=== PATIENT | female | born 1940 | race Caucasian/White ===

== ENCOUNTER 2019-09-18 17:51 | Emergency (ER) | payer MEDICARE ==
[~2019-09-18] VITALS: Ht 177.8 cm; Wt 95.2 kg
== END 2019-09-18 20:19 | disposition home or self-care (01) ==
LOC: ER 17:51
DX: R06.00 Dyspnea, unspecified (principal); N18.3 Chronic kidney disease, stage 3 (moderate); Z86.711 Personal history of pulmonary embolism; Z88.8 Allergy status to other drugs, medicaments and biological substances; Z79.899 Other long term (current) drug therapy
CPT/HCPCS: 36415; 71046; 71260; 99284-25; Q9967

== ENCOUNTER → 2019-09-18 | Outpatient (CLI) | payer MEDICARE ==
[~2019-09-18] MED LIST: ACET500ER PO; AMLO5 PO; CHOL10002 PO; COMBIVENT RESPIM4 GM INH; ELIQUIS5 MG PO; FERR325 PO; OMEP20ER PO; PARO25; PRED1 PO; Prilosec Otc20 MG PO; SUMA25; ZOLP10
[2019-09-18 12:15] LABS: BASOPHILS ABSOLUTE AUTO 0.04 K/mm3 (0.00-0.23); BASOPHILS PERCENT AUTO 1 % (0-2); EOSINOPHILS ABSOLUTE AUTO 0.05 K/mm3 (0.00-0.68); EOSINOPHILS PERCENT AUTO 1 % (0-6); Hematocrit 38.4 % (33.0-51.0); Hemoglobin 11.9 g/dL (11.5-16.0); IMMATURE GRAN ABSOLUTE AUTO 0.03 K/mm3 (0.00-0.10); IMMATURE GRAN PERCENT AUTO 0 % (0-1); LYMPHOCYTES ABSOLUTE AUTO 1.31 K/mm3 (0.84-5.20); LYMPHOCYTES PERCENT AUTO 19 % (21-46); MONOCYTES ABSOLUTE AUTO 0.65 K/mm3 (0.16-1.47); MONOCYTES PERCENT AUTO 10 % (4-13); Mean Corpuscular HGB 26.9 pg (26.0-34.0); Mean Corpuscular Volume 87 fL (80-100); Mean Platelet Volume 10.8 fL (9.1-12.4); NEUTROPHILS ABSOLUTE AUTO 4.74 K/mm3 (1.96-9.15); NEUTROPHILS PERCENT AUTO 70 % (41-73); Platelet Count 243 K/mm3 (150-400); RDW Coefficient Variation 14.4 % (11.7-14.2); RDW Standard Deviation 45.5 fL (35.1-46.3); Red Blood Cell Count 4.43 M/mm3 (3.80-5.20); White Blood Cell Count 6.82 K/mm3 (4.00-11.30)
[2019-09-18 12:33] LABS: Anion Gap 10 mmol/L (6-16); Blood Urea Nitrogen 16 mg/dL (8-24); Bun/Creatinine Ratio 13.8 (12.0-20.0); CO2, Blood 24 mmol/L (21-32); Calcium, Blood 9.2 mg/dL (8.5-10.1); Chloride, Blood 106 mmol/L (98-108); Creatinine, Blood 1.16 mg/dL (0.40-1.00); Glomerular Filtration Rate 45 (60-); Glucose, Blood 102 mg/dL (70-99); Potassium, Blood 4.1 mmol/L (3.5-5.5); Sodium, Blood 140 mmol/L (136-145); Thyroid Stimulating Hormone 1.448 uIU/mL (0.360-4.800)
[2019-09-18 12:35] LABS: Troponin I <0.017 ng/mL (0.000-0.040)
== END | disposition home or self-care (01) ==
LOC: LAB SHORT 12:10 → LAB EV 12:10
PROVIDERS: Physician Assistant Surgical
DX: M62.81 Muscle weakness (generalized) (principal)
CPT/HCPCS: 80048; 83880; 84443; 84484; 85025; 85379

== ENCOUNTER → 2020-05-14 | Outpatient (CLI) | payer MEDICARE ==
[~2020-05-14] MED LIST changes: +CEFU250T47 PO; +FERROUS SULFAT324 MG PO; +FURO20 PO; +Klor-Con 1010 MEQ PO; +METO25 PO; +METO25ER PO; +POTCHL20ER; +PROBIOTIC PO; +VITAMIN D31000 UNI1 PO
[2020-05-14 15:33] LABS: BASOPHILS ABSOLUTE AUTO 0.04 K/mm3 (0.00-0.23); BASOPHILS PERCENT AUTO 0 % (0-2); EOSINOPHILS ABSOLUTE AUTO 0.02 K/mm3 (0.00-0.68); EOSINOPHILS PERCENT AUTO 0 % (0-6); Hematocrit 37.4 % (33.0-51.0); IMMATURE GRAN ABSOLUTE AUTO 0.06 K/mm3 (0.00-0.10); IMMATURE GRAN PERCENT AUTO 0 % (0-1); LYMPHOCYTES ABSOLUTE AUTO 2.68 K/mm3 (0.84-5.20); LYMPHOCYTES PERCENT AUTO 19 % (21-46); MONOCYTES ABSOLUTE AUTO 1.07 K/mm3 (0.16-1.47); MONOCYTES PERCENT AUTO 8 % (4-13); Mean Corpuscular HGB 23.7 pg (26.0-34.0); Mean Corpuscular HGB Conc 29.4 g/dL (31.5-36.5); Mean Corpuscular Volume 80 fL (80-100); Mean Platelet Volume 10.9 fL (9.1-12.4); NEUTROPHILS ABSOLUTE AUTO 9.99 K/mm3 (1.96-9.15); NEUTROPHILS PERCENT AUTO 72 % (41-73); Platelet Count 310 K/mm3 (150-400); RDW Coefficient Variation 20.8 % (11.7-14.2); RDW Standard Deviation 60.3 fL (35.1-46.3); Red Blood Cell Count 4.65 M/mm3 (3.80-5.20); White Blood Cell Count 13.86 K/mm3 (4.00-11.30)
[2020-05-14 15:42] LABS: Albumin/Globulin Ratio 0.6 (0.8-1.8); Bilirubin, Total 1.1 mg/dL (0.1-1.0); Bun/Creatinine Ratio 7.8 (12.0-20.0); Creatinine, Blood 1.67 mg/dL (0.40-1.00)
== END | disposition home or self-care (01) ==
LOC: LAB EV 15:08 → LAB SHORT 15:08
PROVIDERS: Chiropractor
DX: N39.0 Urinary tract infection, site not specified (principal); R50.9 Fever, unspecified; R53.81 Other malaise
CPT/HCPCS: 80053; 83605; 84443; 85025; 87040; 87077; 87086; 87186

== ENCOUNTER → 2020-05-29 | Outpatient (CLI) | payer MEDICARE | LOC: LAB 17:48 → LAB SHORT 17:48 | DX: N39.0 Urinary tract infection, site not specified (principal) | CPT/HCPCS: 87077; 87086; 87186 ==

== ENCOUNTER → 2020-07-01 | Outpatient (CLI) | payer MEDICARE | LOC: LAB SHORT 13:56 → LAB SRC 13:56 | DX: N39.0 Urinary tract infection, site not specified (principal); Z87.440 Personal history of urinary (tract) infections | CPT/HCPCS: 87077; 87086; 87186 ==

== ENCOUNTER → 2021-01-26 | Outpatient (CLI) | payer MEDICARE | LOC: LAB 15:16 → LAB SHORT 15:16 | DX: N30.00 Acute cystitis without hematuria (principal); Z87.440 Personal history of urinary (tract) infections | CPT/HCPCS: 87086 ==

== ENCOUNTER 2021-05-12 07:58 | Day surgery (SDC) | payer MEDICARE ==
[~2021-05-12] VITALS: Ht 175.3 cm; Wt 95.5 kg
[2021-05-12] MEDS ORDERED: CEPH500 PO (08:33)
--- NOTE | 2021-05-12 08:47 | NUR ---
Ambulatory in Day SurgeryPatient states colon prep results clear. History, Chart, Medications and Allergies reviewed before start of procedure.Lungs clear T/O to Auscultation. Patient confirms NPO status and agrees with scheduled surgery.
--- NOTE | 2021-05-12 09:00 | NUR ---
05/12/21 0900 Lizzie Barriga History, Chart, Medications and Allergies reviewed before start of procedure. Patient confirms NPO status and agrees with scheduled surgery. 3-LEAD EKG REVIEWED WITH PHYSICIAN PRIOR TO START OF PROCEDURE. MONITOR INTACT WITH CONTINUOUS PULSE OXIMETRY AND INTERMITTENT BP. PATIENT DETERMINED TO BE ASA APPROPRIATE FOR PROPOFOL SEDATION PRIOR TO START OF PROCEDURE BY .
--- NOTE | 2021-05-12 10:07 | NUR ---
Discharge instructions reviewed with patient. Patient verbalizes understanding. Copy given to patient to take home. Patient States Post-Procedure ride home has been arranged.
== END 2021-05-12 10:20 | disposition home or self-care (01) ==
LOC: ORSCMMR 07:58 → ORD 09:30 → ORSCMMR 10:20
PROVIDERS: Surgery
PROC: 0DJD8ZZ Inspection of Lower Intestinal Tract, Via Natural or Artificial Opening Endoscopic (ICD-10-PCS; principal; 2021-05-12 09:30)
DX: R93.3 Abnormal findings on diagnostic imaging of other parts of digestive tract (principal); K57.30 Diverticulosis of large intestine without perforation or abscess without bleeding; I48.91 Unspecified atrial fibrillation; Z79.01 Long term (current) use of anticoagulants; J44.9 Chronic obstructive pulmonary disease, unspecified; E78.5 Hyperlipidemia, unspecified; I10 Essential (primary) hypertension; Z79.899 Other long term (current) drug therapy
CPT/HCPCS: J2704; J7120

== ENCOUNTER 2023-03-08 16:46 | Emergency (ER) | payer MEDICARE ==
[~2023-03-08] VITALS: Ht 172.7 cm; Wt 94.3 kg
[~2023-03-08 16:46] MED LIST changes: +CEPH500 PO; +LEVAQUIN750 MG PO; +LEVO750 PO
[2023-03-08 18:11] LABS: Source, Urine Straight Cath
[2023-03-08 18:17] LABS: Appearance, Urine Clear (Clear); Bilirubin, Urine Neg (Neg); Blood, Urine 5+ (Neg); Color, Urine Yellow (P-Yellow); Glucose Qualitative, Urine Neg (Neg); Ketones, Urine Neg (Neg); Leukocyte Esterase, Urine Neg (Neg); Nitrite, Urine Neg (Neg); Protein, Urine Neg (Neg); Urobilinogen, Urine NORM (Normal)
[2023-03-08 18:24] LABS: Bacteria Mod /hpf; Mucus Light (0-Heavy); Squamous Epithelial Cells Rare /hpf (Few); White Blood Cells, Urine 0-2 /hpf (0-5)
[2023-03-08 18:56] LABS: BASOPHILS ABSOLUTE AUTO 0.03 K/mm3 (0.00-0.23); BASOPHILS PERCENT AUTO 0 % (0-2); EOSINOPHILS ABSOLUTE AUTO 0.04 K/mm3 (0.00-0.68); EOSINOPHILS PERCENT AUTO 1 % (0-6); Hematocrit 37.6 % (33.0-51.0); Hemoglobin 12.4 g/dL (11.5-16.0); IMMATURE GRAN ABSOLUTE AUTO 0.03 K/mm3 (0.00-0.10); IMMATURE GRAN PERCENT AUTO 0 % (0-1); LYMPHOCYTES PERCENT AUTO 8 % (21-46); MONOCYTES ABSOLUTE AUTO 0.83 K/mm3 (0.16-1.47); MONOCYTES PERCENT AUTO 11 % (4-13); Mean Corpuscular HGB 29.8 pg (26.0-34.0); Mean Corpuscular Volume 90 fL (80-100); Mean Platelet Volume 10.9 fL (9.1-12.4); NEUTROPHILS ABSOLUTE AUTO 5.78 K/mm3 (1.96-9.15); NEUTROPHILS PERCENT AUTO 79 % (41-73); Platelet Count 162 K/mm3 (150-400); RDW Standard Deviation 43.1 fL (35.1-46.3); Red Blood Cell Count 4.16 M/mm3 (3.80-5.20); White Blood Cell Count 7.31 K/mm3 (4.00-11.30)
[2023-03-08 19:12] LABS: Albumin, Blood 2.9 g/dL (3.4-5.0); Albumin/Globulin Ratio 0.9 (0.8-1.8); Bilirubin, Total 1.1 mg/dL (0.1-1.0); Bun/Creatinine Ratio 18.9 (12.0-20.0); Creatinine, Blood 1.32 mg/dL (0.40-1.00); Globulin, Blood 3.4 g/dL (2.2-4.0); Total Protein, Blood 6.3 g/dL (6.4-8.2)
[2023-03-08 21:15] VITALS: BP 135/83
== END 2023-03-08 21:36 | disposition home or self-care (01) ==
LOC: ER 16:46
PROVIDERS: Emergency Medicine
DX: N39.0 Urinary tract infection, site not specified (principal); I12.9 Hypertensive chronic kidney disease with stage 1 through stage 4 chronic kidney disease, or unspecified chronic kidney disease; N18.30 Chronic kidney disease, stage 3 unspecified; Z88.8 Allergy status to other drugs, medicaments and biological substances; Z79.01 Long term (current) use of anticoagulants; Z79.899 Other long term (current) drug therapy
CPT/HCPCS: 70450; 80053; 81001; 85025; 87086; 96365; 99284-25; J0696; J7030

== ENCOUNTER 2023-09-08 19:27 | Emergency (ER) | payer MEDICARE ==
[~2023-09-08] VITALS: Ht 175.3 cm; Wt 88.5 kg
[2023-09-08 19:32] VITALS: BP 111/68
[2023-09-08 20:17] LABS: BASOPHILS ABSOLUTE AUTO 0.03 K/mm3 (0.00-0.23); BASOPHILS PERCENT AUTO 0 % (0-2); EOSINOPHILS PERCENT AUTO 0 % (0-6); Hematocrit 36.8 % (33.0-51.0); Hemoglobin 12.2 g/dL (11.5-16.0); IMMATURE GRAN ABSOLUTE AUTO 0.08 K/mm3 (0.00-0.10); IMMATURE GRAN PERCENT AUTO 1 % (0-1); LYMPHOCYTES PERCENT AUTO 4 % (21-46); MONOCYTES ABSOLUTE AUTO 0.79 K/mm3 (0.16-1.47); MONOCYTES PERCENT AUTO 8 % (4-13); Mean Corpuscular HGB 29.4 pg (26.0-34.0); Mean Corpuscular HGB Conc 33.2 g/dL (31.5-36.5); Mean Corpuscular Volume 89 fL (80-100); Mean Platelet Volume 11.4 fL (9.1-12.4); NEUTROPHILS ABSOLUTE AUTO 8.74 K/mm3 (1.96-9.15); NEUTROPHILS PERCENT AUTO 87 % (41-73); Platelet Count 131 K/mm3 (150-400); RDW Coefficient Variation 13.2 % (11.7-14.2); RDW Standard Deviation 43.2 fL (35.1-46.3); Red Blood Cell Count 4.15 M/mm3 (3.80-5.20); White Blood Cell Count 10.04 K/mm3 (4.00-11.30)
[2023-09-08 20:30] LABS: Source, Urine Clean Catch
[2023-09-08 20:34] LABS: Appearance, Urine Cloudy (Clear); Bilirubin, Urine Neg (Neg); Blood, Urine 5+ (Neg); Color, Urine Yellow (P-Yellow); Glucose Qualitative, Urine Neg (Neg); Ketones, Urine Neg (Neg); Leukocyte Esterase, Urine 3+ (Neg); Nitrite, Urine Neg (Neg); Protein, Urine 2+ (Neg); Specific Gravity, Urine 1.015 (1.003-1.022); Urobilinogen, Urine NORM (Normal)
[2023-09-08 20:38] LABS: Albumin, Blood 2.9 g/dL (3.4-5.0); Albumin/Globulin Ratio 0.8 (0.8-1.8); Bilirubin, Total 1.5 mg/dL (0.1-1.0); Bun/Creatinine Ratio 13.5 (12.0-20.0); Calcium, Blood 8.5 mg/dL (8.5-10.1); Creatinine, Blood 1.41 mg/dL (0.40-1.00); Globulin, Blood 3.7 g/dL (2.2-4.0); Magnesium, Blood 1.9 mg/dL (1.6-2.4); Potassium, Blood 3.5 mmol/L (3.5-5.5); Thyroid Stimulating Hormone 1.17 uIU/mL (0.360-4.800); Total Protein, Blood 6.6 g/dL (6.4-8.2)
[2023-09-08 20:43] LABS: Bacteria Many /hpf; Hyaline Casts 0-2 /lpf (0-2); Squamous Epithelial Cells Few /hpf (Few); White Blood Cells, Urine TNTC /hpf (0-5)
[2023-09-08 21:14] LABS: Influenza A, PCR NEGATIVE (NEGATIVE); Influenza B, PCR NEGATIVE (NEGATIVE); Resp Syncytial Virus, PCR NEGATIVE (NEGATIVE); SARS-Cov-2 (COVID-19) PCR, MMC NEGATIVE (NEGATIVE)
[2023-09-08] MEDS ORDERED: CEFD300 PO (22:12)
== END 2023-09-08 22:26 | disposition home or self-care (01) ==
LOC: ER 19:27
PROVIDERS: Student in an Organized Health Care Education/Training Program
DX: R41.0 Disorientation, unspecified (principal); N39.0 Urinary tract infection, site not specified; R53.1 Weakness; Z88.8 Allergy status to other drugs, medicaments and biological substances; Z79.01 Long term (current) use of anticoagulants; Z79.2 Long term (current) use of antibiotics; Z79.899 Other long term (current) drug therapy; I12.9 Hypertensive chronic kidney disease with stage 1 through stage 4 chronic kidney disease, or unspecified chronic kidney disease; N18.30 Chronic kidney disease, stage 3 unspecified; I48.91 Unspecified atrial fibrillation; Z87.891 Personal history of nicotine dependence; Z11.52 Encounter for screening for COVID-19
CPT/HCPCS: 0241U; 70450; 80053; 81001; 83735; 84443; 84484; 85025; 87086; 93005; 93010; 96365; 99285-25; J0696

== ENCOUNTER 2023-10-11 09:47 | Emergency (ER) | payer OTHER ==
[~2023-10-11] VITALS: Ht 175.3 cm; Wt 81.7 kg
[~2023-10-11 09:47] MED LIST changes: +CEFD300 PO
[2023-10-11 11:04] LABS: BASOPHILS ABSOLUTE AUTO 0.05 K/mm3 (0.00-0.23); BASOPHILS PERCENT AUTO 1 % (0-2); EOSINOPHILS ABSOLUTE AUTO 0.01 K/mm3 (0.00-0.68); EOSINOPHILS PERCENT AUTO 0 % (0-6); Hemoglobin 13.6 g/dL (11.5-16.0); IMMATURE GRAN ABSOLUTE AUTO 0.03 K/mm3 (0.00-0.10); IMMATURE GRAN PERCENT AUTO 0 % (0-1); LYMPHOCYTES ABSOLUTE AUTO 1.22 K/mm3 (0.84-5.20); LYMPHOCYTES PERCENT AUTO 17 % (21-46); MONOCYTES PERCENT AUTO 7 % (4-13); Mean Corpuscular HGB 28.9 pg (26.0-34.0); Mean Corpuscular HGB Conc 31.6 g/dL (31.5-36.5); Mean Corpuscular Volume 91 fL (80-100); Mean Platelet Volume 10.9 fL (9.1-12.4); NEUTROPHILS PERCENT AUTO 74 % (41-73); Platelet Count 126 K/mm3 (150-400); RDW Standard Deviation 47.5 fL (35.1-46.3); Red Blood Cell Count 4.71 M/mm3 (3.80-5.20); White Blood Cell Count 7.01 K/mm3 (4.00-11.30)
[2023-10-11 11:32] LABS: Albumin, Blood 2.8 g/dL (3.4-5.0); Albumin/Globulin Ratio 0.6 (0.8-1.8); Bilirubin, Total 1.6 mg/dL (0.1-1.0); Bun/Creatinine Ratio 12.1 (12.0-20.0); Calcium, Blood 8.8 mg/dL (8.5-10.1); Creatinine, Blood 1.24 mg/dL (0.40-1.00); Globulin, Blood 4.4 g/dL (2.2-4.0); Potassium, Blood 4.2 mmol/L (3.5-5.5); Total Protein, Blood 7.2 g/dL (6.4-8.2)
[2023-10-11 13:38] LABS: Source, Urine Clean Catch
[2023-10-11 13:46] LABS: Appearance, Urine Turbid (Clear); Bilirubin, Urine Neg (Neg); Blood, Urine 5+ (Neg); Color, Urine Yellow (P-Yellow); Glucose Qualitative, Urine Neg (Neg); Ketones, Urine Neg (Neg); Leukocyte Esterase, Urine 3+ (Neg); Nitrite, Urine Pos (Neg); Protein, Urine 3+ (Neg); Specific Gravity, Urine 1.015 (1.003-1.022); Urobilinogen, Urine NORM (Normal)
[2023-10-11 15:05] LABS: Amorphous Light (0-Heavy); Bacteria Many /hpf; Mucus Light (0-Heavy); Squamous Epithelial Cells Rare /hpf (Few); Transitional Epithelial Cells Rare /hpf (0-Rare); White Blood Cells, Urine TNTC /hpf (0-5)
[2023-10-11] MEDS ORDERED: CefTRIAXone Sodium 1,000 MG in NS 100 ML IV ONE (15:15)
[2023-10-11] MEDS ORDERED: CEFP200 PO (15:18)
[2023-10-11 15:30] VITALS: BP 146/71
[2023-10-11] MEDS ORDERED: LEVO750 PO (15:52)
== END 2023-10-11 16:07 | disposition home or self-care (01) ==
LOC: ER 09:47
PROVIDERS: Student in an Organized Health Care Education/Training Program
DX: N39.0 Urinary tract infection, site not specified (principal); Z87.891 Personal history of nicotine dependence; I12.9 Hypertensive chronic kidney disease with stage 1 through stage 4 chronic kidney disease, or unspecified chronic kidney disease; N18.30 Chronic kidney disease, stage 3 unspecified; I48.91 Unspecified atrial fibrillation; M06.9 Rheumatoid arthritis, unspecified; Z87.19 Personal history of other diseases of the digestive system; Z87.440 Personal history of urinary (tract) infections; Z86.711 Personal history of pulmonary embolism; Z79.01 Long term (current) use of anticoagulants; Z79.2 Long term (current) use of antibiotics; Z79.899 Other long term (current) drug therapy; Z88.8 Allergy status to other drugs, medicaments and biological substances
CPT/HCPCS: 51701; 80053; 81001; 83690; 85025; 87086; 93005; 93010; 96365; 99283-25; J0696

== ENCOUNTER → 2024-02-22 | Outpatient (CLI) | payer OTHER ==
[~2024-02-22] MED LIST changes: +CEFP200 PO; +FERSU300 PO; +HYDR1TAB94 PO; +PANT40 PO; +Sanctura20 MG PO
== END | disposition home or self-care (01) ==
LOC: LAB 08:30 → LAB SHORT 08:30
DX: R30.0 Dysuria (principal)
CPT/HCPCS: 87086

== ENCOUNTER 2024-02-28 07:02 | Inpatient (IN) | payer OTHER ==
[2024-02-28] VITALS (9 sets, daily range): BP systolic 83–119; BP diastolic 51–86
[~2024-02-28] VITALS: Ht 175.3 cm; Wt 83.0 kg
[~2024-02-28 07:02] MED LIST changes: -FERSU300 PO
[2024-02-28] MEDS ORDERED: FERSU300 PO (07:42)
[2024-02-28 08:05] LABS: Calcium, Ionized (POC) 1.25 mmol/L (1.10-1.46); Chloride (POC) 111 mmol/L (98-108); Creatinine (POC) 1.6 mg/dL (0.6-1.0); Glucose (ISTAT POC) 86 mg/dL (70-99); Hemoglobin (POC) 9.5 g/dL (12.0-16.0); Potassium (POC) 4.7 mmol/L (3.5-5.5); Sodium (POC) 138 mmol/L (135-148); Total CO2 (POC) 20 mmol/L (21-32)
[2024-02-28 08:10] LABS: BASOPHILS ABSOLUTE AUTO 0.07 K/mm3 (0.00-0.23); BASOPHILS PERCENT AUTO 1 % (0-2); EOSINOPHILS ABSOLUTE AUTO 0.26 K/mm3 (0.00-0.68); EOSINOPHILS PERCENT AUTO 2 % (0-6); Hematocrit 32.2 % (33.0-51.0); Hemoglobin 10.4 g/dL (11.5-16.0); IMMATURE GRAN ABSOLUTE AUTO 0.06 K/mm3 (0.00-0.10); IMMATURE GRAN PERCENT AUTO 1 % (0-1); LYMPHOCYTES PERCENT AUTO 39 % (21-46); MONOCYTES ABSOLUTE AUTO 1.27 K/mm3 (0.16-1.47); MONOCYTES PERCENT AUTO 11 % (4-13); Mean Corpuscular HGB 30.4 pg (26.0-34.0); Mean Corpuscular HGB Conc 32.3 g/dL (31.5-36.5); Mean Corpuscular Volume 94 fL (80-100); Mean Platelet Volume 10.9 fL (9.1-12.4); NEUTROPHILS ABSOLUTE AUTO 5.27 K/mm3 (1.96-9.15); NEUTROPHILS PERCENT AUTO 46 % (41-73); Platelet Count 240 K/mm3 (150-400); RDW Coefficient Variation 18.8 % (11.7-14.2); RDW Standard Deviation 58.2 fL (35.1-46.3); Red Blood Cell Count 3.42 M/mm3 (3.80-5.20); White Blood Cell Count 11.43 K/mm3 (4.00-11.30)
[2024-02-28 08:34] LABS: Albumin, Blood 1.7 g/dL (3.4-5.0); Albumin/Globulin Ratio 0.4 (0.8-1.8); Bilirubin, Total 0.5 mg/dL (0.1-1.0); Bun/Creatinine Ratio 22.7 (12.0-20.0); Calcium, Blood 8.5 mg/dL (8.5-10.1); Creatinine, Blood 1.41 mg/dL (0.40-1.00); Potassium, Blood 5.2 mmol/L (3.5-5.5); Total Protein, Blood 5.7 g/dL (6.4-8.2)
[2024-02-28] MEDS ORDERED: Lidocaine 1%-Epineph 1:100000 20 ML MDV INFIL ONE (08:35)
[2024-02-28] MEDS ORDERED: NS 1,000 ML IV ONE ×2 (09:10→10:52)
[2024-02-28] MEDS ORDERED: Cefepime HCl 2,000 MG in NS 100 ML IV ONE (10:00)
[2024-02-28] MEDS ORDERED: MetroNIDAZOLE 500MG/NS 100 ml 100 ML IV ONE (10:00)
[2024-02-28] MEDS ORDERED: LACTATED RINGER S IV ONE (11:20)
[2024-02-28] MEDS ORDERED: Ondansetron 4 MG TAB PO PRN (11:35)
[2024-02-28] MEDS ORDERED: Acetaminophen 325 MG TABLET PO PRN (11:35)
[2024-02-28] MEDS ORDERED: Human Prothrombin Complx(Pcc) 2,000 UNIT in Water For Injection,Sterile 80 ML IV ONE (11:40)
--- NOTE | 2024-02-28 13:38 | NUR ---
Patient's dtr, Sasha requests a Chef visit, while elysia is lodged in ER3. I visit with patient's dtr in the doorway of that room. Sasha is tearful about her mother's sudden turn for the worst and about her concern for her mother's spiritual health. Patient denies having a spiritual care visit at this time. I therapeutic listening and anxiety containment with Sasha and will continue to remain available to patient and family,
[2024-02-28 16:22] LABS: Hematocrit 35.3 % (33.0-51.0); Hemoglobin 11.8 g/dL (11.5-16.0); Mean Corpuscular HGB 29.5 pg (26.0-34.0); Mean Corpuscular HGB Conc 33.4 g/dL (31.5-36.5); Mean Platelet Volume 11.3 fL (9.1-12.4); Platelet Count 253 K/mm3 (150-400); RDW Coefficient Variation 16.5 % (11.7-14.2); White Blood Cell Count 10.17 K/mm3 (4.00-11.30)
[2024-02-28 16:25] LABS: Mean Corpuscular Volume 88 fL (80-100)
--- NOTE | 2024-02-28 17:06 | NUR ---
ARRIVAL TO ICU PT ARRIVES TO ICU FROM ER FOR BLOOD LOSS ANEMIA AT 1450. PT S/P COLECTOMY AND COLOSTOMY IN NOVEMBER 25. 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 PT STATES SHE WOKE IN PUDDLE OF BLOOD THIS AM. DENIES OTHER SYMPTOMS OR COMPLAINTS. DENIES LIGHTHEADNESS OR DIZZINESS. COLOSTOMY TO LLQ, BROWN STOOL OUT. SUTURES PLACED IN ER TO MIDLINE ABD, NO ACTIVE BLEEDING AT THIS TIME. DRESSING CHANGED. AFIB, RATE 90'S. HYPOTENSION NOTED, ASYMPTOMATIC. MAP >60. WILL CONTINUE PLAN OF CARE UNTIL REPORT TO ONCOMING NURSE.
--- NOTE | 2024-02-28 19:48 | NUR ---
ASSUMED CARE AT 1900 REPORT RECEIVED AT BEDSIDE. PT PRESENTS IN BED. SOFT SPOKEN WITH BEING ALERT AND ORIENTED. PLEASANT AND COOPERATIVE WITH CARE AND ASSESSMENT. PT ABLE TO TAKE PART WITH BEDSIDE REPORT. VISUAL ASSESSMENT OF MIDLINE INCISIONAL WOUND REVEALS NO OOZING. DRESSING CDI. COLOSTOMY BAG INTACT WITH LIQUID BROWN OUTPUT. PT DENIES N/V OR PAIN AT THIS TIME. WILL REVIEW CHART AND PLAN OF CARE FOR THIS PT.
[2024-02-28 23:30] LABS: Source, Urine Foley catheter
[2024-02-28 23:37] LABS: Appearance, Urine Turbid (Clear); Bilirubin, Urine Neg (Neg); Blood, Urine 5+ (Neg); Color, Urine Yellow (P-Yellow); Glucose Qualitative, Urine Neg (Neg); Ketones, Urine 1+ (Neg); Leukocyte Esterase, Urine 3+ (Neg); Nitrite, Urine Pos (Neg); Protein, Urine 3+ (Neg); Specific Gravity, Urine 1.015 (1.003-1.022); Urobilinogen, Urine NORM (Normal)
[2024-02-28 23:53] LABS: White Blood Cells, Urine TNTC /hpf (0-5)
[2024-02-28 23:54] LABS: Amorphous Light (0-Heavy); Bacteria Many /hpf; Red Blood Cells, Urine 25-50 /hpf (0-2); Squamous Epithelial Cells Not Seen /hpf (Few)
[2024-02-29] VITALS (15 sets, daily range): BP systolic 78–121; BP diastolic 50–80
--- NOTE | 2024-02-29 01:44 | NUR ---
NO BLEEDING TO NOTE FROM MIDLINE INCISION OR COLOSTOMY BAG. PT HAS BEEN ABLE TO REST WITHOUT COMPLAINTS OF PAIN OR GI DISTRESS. WILL CONTINUE TO MONITOR.
[2024-02-29 04:15] LABS: BASOPHILS ABSOLUTE AUTO 0.04 K/mm3 (0.00-0.23); BASOPHILS PERCENT AUTO 1 % (0-2); EOSINOPHILS ABSOLUTE AUTO 0.21 K/mm3 (0.00-0.68); EOSINOPHILS PERCENT AUTO 3 % (0-6); Hematocrit 29.8 % (33.0-51.0); Hemoglobin 9.7 g/dL (11.5-16.0); IMMATURE GRAN ABSOLUTE AUTO 0.03 K/mm3 (0.00-0.10); IMMATURE GRAN PERCENT AUTO 0 % (0-1); LYMPHOCYTES ABSOLUTE AUTO 2.65 K/mm3 (0.84-5.20); LYMPHOCYTES PERCENT AUTO 35 % (21-46); MONOCYTES ABSOLUTE AUTO 0.66 K/mm3 (0.16-1.47); MONOCYTES PERCENT AUTO 9 % (4-13); Mean Corpuscular HGB Conc 32.6 g/dL (31.5-36.5); Mean Corpuscular Volume 89 fL (80-100); Mean Platelet Volume 10.3 fL (9.1-12.4); NEUTROPHILS ABSOLUTE AUTO 3.91 K/mm3 (1.96-9.15); NEUTROPHILS PERCENT AUTO 52 % (41-73); Platelet Count 169 K/mm3 (150-400); RDW Coefficient Variation 17.2 % (11.7-14.2); RDW Standard Deviation 55.1 fL (35.1-46.3); Red Blood Cell Count 3.34 M/mm3 (3.80-5.20)
[2024-02-29 04:42] LABS: Albumin, Blood 1.6 g/dL (3.4-5.0); Albumin/Globulin Ratio 0.4 (0.8-1.8); Bilirubin, Total 0.9 mg/dL (0.1-1.0); Calcium, Blood 7.8 mg/dL (8.5-10.1); Creatinine, Blood 1.41 mg/dL (0.40-1.00); Globulin, Blood 3.6 g/dL (2.2-4.0); Magnesium, Blood 2.1 mg/dL (1.6-2.4); Potassium, Blood 4.6 mmol/L (3.5-5.5); Total Protein, Blood 5.2 g/dL (6.4-8.2)
--- NOTE | 2024-02-29 06:37 | NUR ---
APPROX 100 ML STOOL FROM COLOSTOMY. NO S/S BLEEDING. MIDLINE DRESSING CDI. NO COMPLAINTS OF GI DISTRESS. NO COMPLAINTS OF PAIN. HAS TOLERATED Q 2 HOUR TURNS IN BED. REMAINS ON ROOM AIR MAINTAINING SATURATIONS > 90 PERCENT. UA WAS SENT IN EVENING TIME SECONDARY TO CATHETER CHANGE OUT IN EMERGENCY DEPARTMENT PRIOR TO ADMIT TO ICU. PT REMAINS ALERT AND ORIENTED. PLEASANT AND COOPERATIVE WITH CARE AND ASSESSMENT. WILL CONTINUE TO MONITOR PT, AND WILL REPORT OFF TO ONCOMING RN.
--- NOTE | 2024-02-29 08:37 | NUR ---
ASSUMED CARE BEDSIDE REPORT FROM KENYATTA MURO AT 0700. PT RESTING IN BED. WAKES c VERBAL STIMULI. A&OX 3. FOLLOWS DIRECTIONS, ABLE TO MAKE NEEDS KNOWN. DENIES SYMPTOMS OR COMPLAINTS. LUNGS CLEAR. AFIB ON MONITOR, BP STABLE. MAP>65. COLOSTOMY TO LLQ, APPLIANCE INTACT, BROWN LIQUID STOOL OUT. NO BLEEDING FROM MIDLINE SITE, DRESSING C/D/I. FLORIAN PATENT, DRAINING YELLOW URINE c SEDIMENT TO GRAVITY. CALL LIGHT IN REACH. WILL CONTINUE PLAN OF CARE.
--- NOTE | 2024-02-29 10:43 | NUR ---
Patient is lying in bed and has her dtr, Sasha, bedside. Patient and Sasha explain about the personal struggles. I provided therapeutic listening and a calming presence. Patient and Sasha responded and well and showed signs of greater peace.
--- NOTE | 2024-02-29 15:20 | NUR ---
TRANSFER TO MEDICAL FLOOR/SHIFT SUMMARY NO ACUTE CHANGES THIS SHIFT. REMAINS ASYMPTOMATIC, DENIES DIZZINESS. LIGHTHEADNESS. LUNGS CLEAR. AFIB, RATE 90-100'S. BP STABLE. MAP>65. NO BLEEDING FROM ABD WOUND SITE. COLOSTOMY INTACT, BROWN LIQUID STOOL OUT. PT WORKED c PHYSICAL THERAPY THIS SHIFT. REPORT TO WILFREDO MURO. PT TRANSFERRED TO 350 c ALL BELONGINGS. DAUGHTER TATE UPDATED.
--- NOTE | 2024-02-29 16:01 | NUR ---
TRANSFER NOTE PATIENT TARNSFERRED TO UNIT AT 1530. A/OX4, PLEASANT WITH STAFF. STATES SHE HAS CHRONIC PAIN "EVERYWHERE". SKIN ASSESSMENT COMPLETED BY 2 RNS. MIDLINE WOUND WITH 2 STITCHES, DRESSING CLEAN, DRY AND INTACT. SMALL DIME-SIZED PINK OPEN WOUND TO COCCYX, SMALL DIME SIZED NON-BLANCHABLE PINK AREA TO RIGHT UPPER BUTTOCKS NOTED. PICTURES OBTAINED FOR DOCUMENTATION. HEALS PURPLE DISCOLORATION, BUT BLANCHABLE. HEALS WERE FLOATED WITH PILLOWS. CHRONIC FLORIAN CATHETER IN PLACE, DRAINING PROPERLY. COLOSTOMY IN PLACE WITH BROWN STOOL PRESENT. NO CONCERNS AT THIS TIME.
--- NOTE | 2024-02-29 17:38 | NUR ---
SHIFT SUMMARY NO CHANGES SINCE TRANSFERRED TO ROOM 350. PATIENT RESTING COMFORTABLY IN BED. CALLLIGHT WITHIN REACH, BED ALARM ON. NO CONCERNS AT THIS TIME.
--- NOTE | 2024-02-29 18:17 | NUR ---
REVIEWED BHASKAR VILLALOBOS'S NOTE AND AGREE WITH IT.
[2024-02-29] MEDS ORDERED: Pantoprazole Sodium 40 MG Tab PO SCH (19:40)
[2024-03-01 03:27] VITALS: BP 106/59
--- NOTE | 2024-03-01 07:26 | NUR ---
PATIENT REPORTED ACID REFLUX, INSULATION CUTTER PA WAS NOTIFIED AND HOME DOSE OF PROTONIX WAS ORDERED AND GIVE WITH GOOD EFFECT. ABD. MILLS IS CD&I, NO S/S OF BLEEDING. COLOSTOMY WAS ACTIVE FOR 100ML OF BROWN LOOSE STOOL. FLORIAN IS PATENT FOR A BLOOD TINGED, CLOUDY WITH SEDIMENT URINE.
[2024-03-01 07:27] VITALS: BP 93/47
[2024-03-01 10:20] LABS: BASOPHILS ABSOLUTE AUTO 0.05 K/mm3 (0.00-0.23); BASOPHILS PERCENT AUTO 1 % (0-2); EOSINOPHILS PERCENT AUTO 4 % (0-6); Hematocrit 31.6 % (33.0-51.0); Hemoglobin 10.4 g/dL (11.5-16.0); IMMATURE GRAN ABSOLUTE AUTO 0.02 K/mm3 (0.00-0.10); IMMATURE GRAN PERCENT AUTO 0 % (0-1); LYMPHOCYTES ABSOLUTE AUTO 1.57 K/mm3 (0.84-5.20); LYMPHOCYTES PERCENT AUTO 28 % (21-46); MONOCYTES ABSOLUTE AUTO 0.53 K/mm3 (0.16-1.47); MONOCYTES PERCENT AUTO 10 % (4-13); Mean Corpuscular HGB 29.9 pg (26.0-34.0); Mean Corpuscular HGB Conc 32.9 g/dL (31.5-36.5); Mean Corpuscular Volume 91 fL (80-100); Mean Platelet Volume 10.5 fL (9.1-12.4); NEUTROPHILS ABSOLUTE AUTO 3.21 K/mm3 (1.96-9.15); NEUTROPHILS PERCENT AUTO 58 % (41-73); Platelet Count 160 K/mm3 (150-400); RDW Coefficient Variation 17.3 % (11.7-14.2); RDW Standard Deviation 56.1 fL (35.1-46.3); Red Blood Cell Count 3.48 M/mm3 (3.80-5.20); White Blood Cell Count 5.58 K/mm3 (4.00-11.30)
[2024-03-01 10:52] LABS: Albumin, Blood 1.9 g/dL (3.4-5.0); Albumin/Globulin Ratio 0.5 (0.8-1.8); Bilirubin, Total 0.6 mg/dL (0.1-1.0); Bun/Creatinine Ratio 21.7 (12.0-20.0); Calcium, Blood 8.4 mg/dL (8.5-10.1); Creatinine, Blood 1.38 mg/dL (0.40-1.00); Potassium, Blood 4.4 mmol/L (3.5-5.5); Total Protein, Blood 5.9 g/dL (6.4-8.2)
--- NOTE | 2024-03-01 15:30 | NUR ---
DISCHARGE NOTE PATIENT A/OX3, PLEASANT AND COOPERATIVE WITH STAFF. FOAM DRESSING PLACED TO SACRAL AREA, WOUND CARE PROVIDED TO ABDOMINAL WOUND, AND COLOSTOMY REPLACED THIS AM. PATIENT TOLERATED TREATMENTS WELL. CHRONIC FLORIAN IN PLACE AND FLORIAN CARE PROVIDED PRIOR TO DISCHARGE, FUNCTIONING PROPERLY. TELEMETRY REMOVED AT DISCHARGE, READING AFIB. DISCHARGE INSTRUCTIONS PROVIDED TO PATIENT AND DISCUSSED WITH DAUGHTER TATE OVER THE PHONE. PIVs REMOVED PRIOR TO DISCHARGE. PATIENT LEFT VIA STRETCHER TRANSPORTATION. PATIENT AND DAUGHTER WITH NO QUESTIONS AT TIME OF DISCHARGE.
--- NOTE | 2024-03-01 16:58 | NUR ---
REVIEWED AND AGREE WITH ALL NOTES AND ASSESSMENTS BY BHASKAR VILLALOBOS.
== END 2024-03-01 15:56 | disposition home health service (06) | DRG 811 ==
LOC: ER 07:02 → ICUE 07:03 → MEDS 02-29 15:22 → ENPENDDIS 03-01 11:54 → MEDS 03-01 15:56
PROVIDERS: Emergency Medicine; Family Medicine; Nurse Practitioner Acute Care; ADMIT Internal Medicine
PROC: 0T9B70Z Drainage of Bladder with Drainage Device, Via Natural or Artificial Opening (ICD-10-PCS; principal; 2024-02-28)
PROC: 30283B1 Transfusion of Nonautologous 4-Factor Prothrombin Complex Concentrate into Vein, Percutaneous Approach (ICD-10-PCS; 2024-02-28)
DX: D62 Acute posthemorrhagic anemia (principal); K63.1 Perforation of intestine (nontraumatic); I50.32 Chronic diastolic (congestive) heart failure; N17.9 Acute kidney failure, unspecified; I13.0 Hypertensive heart and chronic kidney disease with heart failure and stage 1 through stage 4 chronic kidney disease, or unspecified chronic kidney disease; I95.9 Hypotension, unspecified; K74.60 Unspecified cirrhosis of liver; I25.10 Atherosclerotic heart disease of native coronary artery without angina pectoris; N32.81 Overactive bladder; I48.91 Unspecified atrial fibrillation; L89.159 Pressure ulcer of sacral region, unspecified stage; B96.20 Unspecified Escherichia coli [E. coli] as the cause of diseases classified elsewhere; N18.32 Chronic kidney disease, stage 3b; M06.9 Rheumatoid arthritis, unspecified; K21.9 Gastro-esophageal reflux disease without esophagitis; Z90.49 Acquired absence of other specified parts of digestive tract; Z87.891 Personal history of nicotine dependence; Z66 Do not resuscitate; Z88.8 Allergy status to other drugs, medicaments and biological substances; Z79.01 Long term (current) use of anticoagulants; Z79.891 Long term (current) use of opiate analgesic; Z79.899 Other long term (current) drug therapy; Z86.711 Personal history of pulmonary embolism; Z87.19 Personal history of other diseases of the digestive system; Z98.51 Tubal ligation status; Z98.890 Other specified postprocedural states
CPT/HCPCS: 36415; 36430; 51702; 74174; 80047; 80053; 81001; 83735; 85014; 85025; 85027; 86850; 86900; 86901; 86923; 87077; 87086; 87186; 96365; 96365-59; 96367; 96367-59; 97110; 97162; 97530; 99284-25; A9270; G0378; J0692; J7030; J7120; J7168; P9016; Q9967